=== PATIENT | male | born 1990 | race Caucasian/White ===

== ENCOUNTER 2022-07-07 03:46 | Emergency (ER) | payer OTHER ==
[~2022-07-07] VITALS: Ht 182.9 cm; Wt 90.7 kg
[~2022-07-07 03:46] MED LIST: CLONIDINE HCL0.1 MG PO; IBUPROFEN800 MG PO; NORCO 10-325 T1 EACH PO; NORCO 5-325 TA1 EACH PO; REQUIP1 MG PO; REVIA50 MG PO
[2022-07-07 04:45] VITALS: BP 140/87
== END 2022-07-07 04:47 | disposition home or self-care (01) ==
LOC: ED 03:46
DX: S01.81XA Laceration without foreign body of other part of head, initial encounter (principal); W22.09XA Striking against other stationary object, initial encounter
CPT/HCPCS: 90714